=== PATIENT | female | born 1955 | race Caucasian/White ===

== ENCOUNTER 2016-08-29 02:20 | Emergency (ER) | payer BC ==
[2016-08-29] MEDS ORDERED: Al Hydrox/Mg Hydrox/Simet LIQ* 30 ML UDC PO ONE (02:33)
[2016-08-29] MEDS ORDERED: Morphine INJ* 4 MG/ML 1 ML CARPUJECT IV ONE (02:33)
[2016-08-29] MEDS ORDERED: Ondansetron INJ* 2 MG/ML VIAL IV ONE (02:33)
[2016-08-29] MEDS ORDERED: NS 0.9% 1000 ML* 2,000 ML IV ONE (02:33)
[2016-08-29] MEDS ORDERED: Pantoprazole IV* 40 MG IV ONE (02:33)
[2016-08-29] MEDS ORDERED: Lidocaine 2% VISCOUS* 15 ML UDC PO ONE (02:33)
[2016-08-29] MEDS ORDERED: Nitroglycerin TAB 0.4 MG* 0.4 MG TAB SL ONE (02:33)
[2016-08-29 03:11] LABS: Hematocrit 40 % (35-47); Hemoglobin 13.1 g/dl (12.0-16.0); Mean Corpuscular HGB Conc 33 g/dl (31-36); Mean Corpuscular Hemoglobin 29 pg (27-31); Mean Corpuscular Volume 88 fL (80-97); Mean Platelet Volume 9 um3 (7.4-10.4); Red Blood Count 4.49 10^6/ul (4.0-5.4); Red Cell Distribution Width 13 % (10.5-15); White Blood Count 9.9 10^3/ul (3.5-10.8)
[2016-08-29 03:12] LABS: Urine Bilirubin Negative (Negative); Urine Glucose Negative (Negative); Urine Nitrite Negative (Negative)
[2016-08-29 03:59] LABS: Albumin 3.9 g/dL (3.2-5.2); BUN/Creatinine Ratio 21.8 (8-20); C Reactive Protein 3.03 mg/L (< 5.00); EGFR African American 85.4 (>60); EGFR Non-African American 66.4 (>60); Globulin 2.6 g/dL (2-4); Magnesium 1.9 mg/dL (1.9-2.7); Potassium 3.1 mmol/L (3.5-5.0); Total Bilirubin 0.4 mg/dL (0.2-1.0); Total Protein 6.5 g/dL (6.4-8.9)
[2016-08-29 04:08] LABS: TSH (Thyroid Stimulating Horm) 0.95 mcIU/mL (0.34-5.60)
[2016-08-29] MEDS ORDERED: Iohexol 350* (CONTRAST) 500 ML MDV IV ONE (04:16)
[2016-08-29] MEDS ORDERED: Ketorolac INJ* 30 MG/ML 1 ML VIAL IV ONE (06:12)
[2016-08-29] MEDS ORDERED: NS 0.9% 1000 ML* 1,000 ML IV SCH (06:15)
--- NOTE | 2016-08-29 08:48 | RAD ---
HISTORY: Upper abdominal pain COMPARISONS: Same day CT chest abdomen and pelvis. TECHNIQUE: Multiple transverse and longitudinal ultrasound images were obtained of the right upper quadrant. FINDINGS: LIVER: Medial aspect of the right lobe of the liver there is a subcapsular 1.2 hyperechogenic foci exhibiting no significant vascularity. The remainder of the visualized liver is normal in dimensions and echogenicity. Normal hepatic and portal venous blood flow is duplicated with color flow imaging. There is no gross intrahepatic biliary duct dilatation. GALLBLADDER AND EXTRAHEPATIC BILIARY DUCT: The physician extender reports a positive sonographic Dejesus sign. There are innumerable shadowing echogenic foci within the lumen of the gallbladder most compatible with multiple stones and sludge. There is a gallstone at the neck of the gallbladder that remains the mobile despite repositioning the patient. The gallbladder wall measures up to 5 mm in thickness. The common bile duct measures a maximum diameter of 5 mm. PANCREAS: The portions of the pancreas not obscured by bowel gas are normal in appearance. RIGHT KIDNEY: The right kidney is normal in size, morphology and echogenicity. IMPRESSION: CHOLELITHIASIS INCLUDING AN IMMOBILE GALLSTONE AT THE GALLBLADDER NECK IN THE PRESENCE OF MINIMAL GALLBLADDER WALL THICKENING AND A REPORTED POSITIVE SONOGRAPHIC DEJESUS SIGN. THE SONOGRAPHIC FINDINGS COULD BE SEEN IN THE PRESENCE OF OBSTRUCTIVE CHOLECYSTITIS. IF CLINICALLY WARRANTED FURTHER CHARACTERIZATION COULD BE MADE WITH A HIDA SCAN.
--- NOTE | 2016-08-29 08:59 | RAD ---
INDICATION: Epigastric and low thoracic pain with a positive d-dimer COMPARISON: None. TECHNIQUE: Multidetector CT images of the chest, abdomen and pelvis were obtained from the lung apices to the ischial tuberosities after the injection of 100 mL Omnipaque 350 and administration of oral contrast. CT of the chest was acquired according to the pulmonary embolism protocol. CHEST: There is no filling defect of the pulmonary arteries to indicate an acute pulmonary embolism. The lungs are clear. There are no large pleural effusions. There is no mediastinal or hilar lymphadenopathy. The heart and major vascular structures are grossly normal in appearance. At the midline anterior chest wall there is a 1.4 cm hyperattenuating nodule possibly representing a sebaceous or epidermoid cyst. ABDOMEN \T\ PELVIS: The liver, spleen, pancreas and adrenal glands are grossly normal in appearance. Gallstones are seen in the gallbladder lumen and there is the appearance of mild wall thickening. The kidneys are normal in appearance without focal mass, calcification or signs of hydronephrosis. The oral contrast has progressed as far as the distal small bowel. The 5 mm diameter appendix is identified in the right hemiabdomen (coronal image 46). The small and large bowel are not distended. There is no gross retroperitoneal or mesenteric lymphadenopathy. The pelvic viscera is normal in appearance. The abdominal aorta and iliac arteries are normal in course and diameter. There are no sinister bone lesions. IMPRESSION: 1. There are gallstones with questionable appearance of gallbladder wall thickening. 2. No CT evidence of pulmonary embolism. 3. Chronic and degenerative findings as described in the body of the report.
[2016-08-29 11:31] VITALS: BP 117/67
--- NOTE | 2016-08-29 12:16 | RAD ---
INDICATION: Chest pain COMPARISON: None. TECHNIQUE: Single AP portable view of the chest was obtained. FINDINGS: Image quality is compromised due to the relative inferiority of a portable chest x-ray. The heart and mediastinum exhibit normal size and contour. The lungs are grossly clear. There is no evidence of a large pleural effusion. Visualized bones are normal for the patient's age. IMPRESSION: No radiographic evidence for acute cardiopulmonary abnormality on this portable chest x-ray.
--- NOTE | 2016-08-29 13:59 | CONS ---
SURGICAL CONSULTATION: DATE OF CONSULT: 08/29/16 - EMERGENCY DEPT CHIEF COMPLAINT: Epigastric abdominal pain/chest pain, nausea and vomiting. HISTORY OF PRESENT ILLNESS: This is a 60-year-old female, previously in good health, who had developed a dull pressure/pain in the substernal region of the chest on 08/28/17, starting about 9:30 p.m. Prior to this she had eaten some shrimp, cheese, and crackers, as well as had some eggnog to drink. She thought that this might be indigestion. She tried taking Tums, without relief. As her symptoms worsened, she was brought to the emergency room by ambulance. She did experience nausea and apparently, upon being administered GI cocktail in the emergency room, she did vomit. She was noted to have a tender epigastrium at that point. The patient reports no similar episodes of these symptoms in the past. She did have some diarrhea. Denies tea colored urine, cait colored stools. She did experience chills, but reports no fever. Pain seem to be worse with any type of movements and improved with IV pain medication. PAST MEDICAL HISTORY: She has exercise-induced asthma, left knee arthritis, she has had ganglion cyst of the wrist and neuroma of both feet. PAST SURGICAL HISTORY: She has had wisdom teeth extracted and a left carpal tunnel release at [facility] in 2013. MEDICATIONS: Denies. ALLERGIES: No known drug allergies. Band-Aids can cause a rash. FAMILY HISTORY: Her mother of pancreatic cancer at age 76. Father of congestive heart failure at age 89. SOCIAL HISTORY: She reports a 5-pack-year history of tobacco use and quit many years ago. 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 She is and has 12 children. REVIEW OF SYSTEMS: A 14-point review of systems was completed. This is significant for the above mentioned issues, otherwise was negative. PHYSICAL EXAMINATION: She is a 5-feet 6-inch, 140-pound female, lying in the emergency room stretcher, in no acute distress. Her temperature is 97.3, with heart rate of 78, respirations 18, O2 sat 98% on room air, blood pressure 118/ 60. Head is normocephalic and atraumatic, with sclerae anicteric. Mucous membranes are moist. No otorrhea. No rhinorrhea. Her oropharynx is clear. Dentition are intact. Mucous membranes are moist. The neck is symmetrical, with midline trachea. No palpable lymph nodes or masses. Her lungs are clear to auscultation bilaterally, without wheezes, rales or rhonchi. She uses no accessory muscles for respirations. Heart is regular S1 and S2, with no murmurs , rubs or gallops appreciated. The abdomen has bowel sounds present, is without scars, is nondistended, is nontender, with no palpable masses or hernias. No hepatosplenomegaly and no Dejesus sign. Extremities are warmth without cyanosis, clubbing or edema. DIAGNOSTIC STUDIES/LAB DATA: CBC shows WBC is 9.9, hemoglobin 13.1, hematocrit 40, platelets 246. Chemistries are sodium of 141, potassium of 3.1, chloride 105, bicarb 25, BUN 19, creatinine 0.87, glucose 174, lactate 1.8, total bili 0.4, AST 18, ALT 12, alk phos 62. Troponin is negative. C-reactive protein was normal. Urinalysis showed 1+ ketones. RADIOGRAPHIC DATA: She had a CT angiogram, chest, abdomen and pelvis, which showed gallstones. No pulmonary embolism. She had an ultrasound of the gallbladder performed, which showed cholelithiasis, with a gallstone in the gallbladder neck. Minimal gallbladder wall thickening. Positive sonographic Dejesus's sign. IMPRESSION: This is a 60-year-old female, with no significant past medical history, with gallstones and what appears to be biliary colic. There is no evidence for acute cholecystitis based on laboratory data and clinical examination. PLAN/RECOMMENDATIONS: I discussed the findings with the patient and her who accompanied her. I recommended a laparoscopic cholecystectomy. I explained the relevant anatomy. I explained the nature of the disease and the potential complications of gallstones. We discussed the surgery and the potential for open surgery as well. The nature of the procedure, indications, risks, benefits and alternatives, including option of treatment were discussed. The risks were explained, including, not limited to bleeding, infection, pain , scarring, blood clots, pneumonia, bile duct injury or leak, nausea, vomiting, diarrhea, and the risk of general anesthesia. The patient had an opportunity to ask questions. All their questions were answered. She states her understanding. The patient does wish to proceed with surgery. I do not believe that she needs to be admitted at this time and this could be performed as an outpatient procedure and I anticipate this will happen later this week. We are going to try for September 03. [facility] office will contact the patient to make the arrangements. She can be discharged from the emergency room. CC: Herve Herrera MD * [id number]/CPS #: [id number] MTDD
--- NOTE | 2016-09-01 16:32 | ED ---
Zoë Pantoja Adam, scribed for Popeye Xiong MD on 08/29/16 at 0908 . Progress - Results/Orders Results/Orders: Gallbladder ultrasound: CHOLELITHIASIS INCLUDING AN IMMOBILE GALLSTONE AT THE GALLBLADDER NECK IN THE PRESENCE OF MINIMAL GALLBLADDER WALL THICKENING AND A REPORTED POSITIVE SONOGRAPHIC CARSON SIGN. THE SONOGRAPHIC FINDINGS COULD BE SEEN IN THE PRESENCE OF OBSTRUCTIVE CHOLECYSTITIS. IF CLINICALLY WARRANTED FURTHER CHARACTERIZATION COULD BE MADE WITH A HIDA SCAN. Re-Evaluation - Re-Evaluation First Eval Re-Evaluation Time: 09:07 Change: Worse Comment: Pt still c/o RUQ pain. She also developed epigastric pain with radiation to her back. Second Eval Re-Evaluation Time: 11:33 Change: Improved Comment: Patient not experiencing any pain currently. Course/Dx - Diagnoses Provider Diagnoses: Cholelithiasis - Provider Notifications Discussed Care Of Patient With: Dr. Lopez (09:00) - Agrees to admit patient. Dr. Lopez (11:20) - Wants to remove gallbladder this week. She will be discharged home. Instructed by Provider To: Admit As Inpatient The documentation as recorded by the jacquieibZoë maher Adam accurately reflects the service I personally performed and the decisions made by Tyrese ha Jerry, MD.
--- NOTE | 2016-09-02 08:50 | ED ---
Johnathan Pantoja Rebecca, scribed for Jhonny Mcallister MD on 08/29/16 at 0236 . HPI Chest Pain <Popeye Xiong - Last Filed: 09/01/16 16:33> - HPI Summary HPI Summary: Pt is a 60 y/o F who presents to ED c/o CP. Pain began suddenly last night at 2130 (approximately 5 hours prior to arrival) after eating and has been constant since onset. Pain is characterized as pressure, located in the lower/ mid chest and ranked 8/10. Pain radiates into the back, unsure of whether pain radiates into the abdomen. Sx aggravated and alleviated by nothing. Treated with 4 81 mg [employer]. Additionally c/o nausea and "shaking". Denies vomiting, SOB, diaphoresis. No previous similar episodes. No SHx smoking. Confirms that she still has her gallbladder. - History of Current Complaint Hx Obtained From: Patient Onset/Duration: Started Hours Ago - 5 hours ago, Still Present Time of Onset: 21:30 Timing: Constant Initial Severity: Severe Current Severity: Severe Pain Intensity: 8 Pain Scale Used: 0-10 Numeric Chest Pain Location: Mid Sternal, Lower Sternal Chest Pain Radiates: Yes Chest Pain Radiates To:: Back Character: Pressure/Squeezing Aggravating Factor(s): Nothing Alleviating Factor(s): Nothing Associated Signs and Symptoms: Positive: Chest Pain, Nausea, Other: - "shaking" . Negative: Shortness of Breath, Diaphoresis, Vomiting <Jhonny Mcallister - Last Filed: 09/02/16 08:50> - History of Current Complaint Chief Complaint: EDChestPainROMI - Allergy/Home Medications Allergies/Adverse Reactions: Allergies Allergy/AdvReac Type Severity Reaction Status Date / Time BANDAIDS Allergy Rash Uncoded 09/01/16 16:02 PMH/Surg Hx/FS Hx/Imm Hx Endocrine/Hematology History: Denies: Hx Diabetes Cardiovascular History: Denies: Hx Hypercholesterolemia, Hx Hypertension Respiratory History: Reports: Hx Asthma Infectious Disease History: No Infectious Disease History: Denies: Traveled Outside the [place] in Last 30 Days - Family History Known Family History: Positive: Cardiac Disease, Diabetes - Social History Lives: With Family Alcohol Use: None Substance Use Type: Reports: None Smoking Status (MU): Former Smoker <Jhonny Mcallister - Last Filed: 09/02/16 08:50> Review of Systems Positive: Other - "Shaking". Negative: Skin Diaphoresis Positive: Chest Pain Negative: Shortness Of Breath Positive: Nausea. Negative: Vomiting All Other Systems Reviewed And Are Negative: Yes <Jhonny Mcallister - Last Filed: 09/02/16 08:50> Physical Exam Vital Signs On Initial Exam: Initial Vitals Temp Pulse Resp BP Pulse Ox 36.2 C 72 24 120/53 100 08/29/16 02:22 08/29/16 02:22 08/29/16 02:22 08/29/16 02:22 08/29/16 02:22 <Popeye Xiong - Last Filed: 09/01/16 16:33> Triage Information Reviewed: Yes Vital Signs On Initial Exam: Initial Vitals Temp Pulse Resp BP Pulse Ox 97.1 F 72 24 120/53 100 08/29/16 02:22 08/29/16 02:22 08/29/16 02:22 08/29/16 02:22 08/29/16 02:22 Vital Signs Reviewed: Yes Appearance: Positive: Well-Appearing, Pain Distress - Moderate Skin: Positive: Warm, Skin Color Reflects Adequate Perfusion, Dry Eyes: Positive: EOMI, CORTES Neck: Positive: Supple, Nontender Respiratory/Lung Sounds: Positive: Clear to Auscultation, Breath Sounds Present Cardiovascular: Positive: RRR Abdomen Description: Positive: Soft. Negative: Nontender - Tender in the epigastrum Bowel Sounds: Positive: Present Musculoskeletal: Positive: Normal, Strength/ROM Intact Neurological: Positive: Normal, Sensory/Motor Intact, Alert, Oriented to Person Place, Time Psychiatric: Positive: Affect/Mood Appropriate <Jhonny Mcallister - Last Filed: 09/02/16 08:50> Diagnostics - Vital Signs Vital Signs Temp Pulse Resp BP Pulse Ox 08/29/16 11:30 36.6 C 74 16 117/67 08/29/16 10:30 76 18 118/60 98 08/29/16 10:00 68 19 124/62 98 08/29/16 09:00 84 17 129/59 97 08/29/16 08:44 124/70 08/29/16 08:38 79 23 98 08/29/16 08:00 73 17 96 08/29/16 07:00 69 16 122/59 98 01/01/17 06:30 64 22 128/64 100 08/29/16 06:16 16 08/29/16 06:00 75 21 109/92 100 08/29/16 05:30 69 23 131/62 99 08/29/16 05:29 71 22 94 08/29/16 05:27 115/84 08/29/16 04:55 68 22 92 08/29/16 04:14 36.3 C 67 18 100 08/29/16 04:00 68 18 136/62 95 08/29/16 03:49 63 20 122/54 99 08/29/16 03:00 60 24 100 08/29/16 02:36 71 21 108/55 100 08/29/16 02:22 36.2 C 72 24 120/53 100 - Laboratory Lab Results: Lab Results 08/29/16 08/29/16 08/29/16 Range/Units 02:59 02:59 02:59 WBC 9.9 (3.5-10.8) 10^3/ul RBC 4.49 (4.0-5.4) 10^6/ul Hgb 13.1 (12.0-16.0) g/dl Hct 40 (35-47) % MCV 88 (80-97) fL MCH 29 (27-31) pg MCHC 33 (31-36) g/dl RDW 13 (10.5-15) % Plt Count 246 (150-450) 10^3/ul MPV 9 (7.4-10.4) um3 Neut % (Auto) 79.1 (38-83) % Lymph % (Auto) 14.7 L (25-47) % Sharkey % (Auto) 5.0 (1-9) % Eos % (Auto) 0.6 (0-6) % Baso % (Auto) 0.6 (0-2) % Absolute Neuts (auto) 7.9 H (1.5-7.7) 10^3/ul Absolute Lymphs (auto) 1.5 (1.0-4.8) 10^3/ul Absolute Monos (auto) 0.5 (0-0.8) 10^3/ul Absolute Eos (auto) 0.1 (0-0.6) 10^3/ul Absolute Basos (auto) 0.1 (0-0.2) 10^3/ul Absolute Nucleated RBC 0 10^3/ul Nucleated RBC % 0 INR (Anticoag Therapy) 0.97 (0.89-1.11) APTT 25.0 L (26.0-36.3) seconds D-Dimer, Quantitative 240 H (Less Than 230) ng/mL Sodium (133-145) mmol/L Potassium (3.5-5.0) mmol/L Chloride (101-111) mmol/L Carbon Dioxide (22-32) mmol/L Anion Gap (2-11) mmol/L BUN (6-24) mg/dL Creatinine (0.51-0.95) mg/dL Est GFR ( Amer) (>60) Est GFR (Non-Af Amer) (>60) BUN/Creatinine Ratio (8-20) Glucose (70-100) mg/dL Lactic Acid (0.5-2.0) mmol/L Calcium (8.6-10.3) mg/dL Magnesium (1.9-2.7) mg/dL Total Bilirubin (0.2-1.0) mg/dL AST (13-39) U/L ALT (7-52) U/L Alkaline Phosphatase (34-104) U/L Total Creatine Kinase (10-223) U/L CK-MB (CK-2) (0.6-6.3) ng/mL Troponin I (<0.04) ng/mL C-Reactive Protein (< 5.00) mg/L B-Natriuretic Peptide ( - 100) pg/mL Total Protein (6.4-8.9) g/dL Albumin (3.2-5.2) g/dL Globulin (2-4) g/dL Albumin/Globulin Ratio (1-3) TSH (0.34-5.60) mcIU/mL Urine Color Yellow Urine Appearance Cloudy Urine pH 7.0 (5-9) Ur Specific [place] 1.017 (1.010-1.030) Urine Protein Negative (Negative) Urine Ketones 1+ H (Negative) Urine Blood Negative (Negative) Urine Nitrate Negative (Negative) Urine Bilirubin Negative (Negative) Urine Urobilinogen Negative (Negative) Ur Leukocyte Esterase Negative (Negative) Urine Glucose Negative (Negative) 08/29/16 08/29/16 08/29/16 Range/Units 02:59 02:59 02:59 WBC (3.5-10.8) 10^3/ul RBC (4.0-5.4) 10^6/ul Hgb (12.0-16.0) g/dl Hct (35-47) % MCV (80-97) fL MCH (27-31) pg MCHC (31-36) g/dl RDW (10.5-15) % Plt Count (150-450) 10^3/ul MPV (7.4-10.4) um3 Neut % (Auto) (38-83) % Lymph % (Auto) (25-47) % Sharkey % (Auto) (1-9) % Eos % (Auto) (0-6) % Baso % (Auto) (0-2) % Absolute Neuts (auto) (1.5-7.7) 10^3/ul Absolute Lymphs (auto) (1.0-4.8) 10^3/ul Absolute Monos (auto) (0-0.8) 10^3/ul Absolute Eos (auto) (0-0.6) 10^3/ul Absolute Basos (auto) (0-0.2) 10^3/ul Absolute Nucleated RBC 10^3/ul Nucleated RBC % INR (Anticoag Therapy) (0.89-1.11) APTT (26.0-36.3) seconds D-Dimer, Quantitative (Less Than 230) ng/mL Sodium 141 (133-145) mmol/L Potassium 3.1 L (3.5-5.0) mmol/L Chloride 105 (101-111) mmol/L Carbon Dioxide 25 (22-32) mmol/L Anion Gap 11 (2-11) mmol/L BUN 19 (6-24) mg/dL Creatinine 0.87 (0.51-0.95) mg/dL Est GFR ( Amer) 85.4 (>60) Est GFR (Non-Af Amer) 66.4 (>60) BUN/Creatinine Ratio 21.8 H (8-20) Glucose 174 H (70-100) mg/dL Lactic Acid 1.8 (0.5-2.0) mmol/L Calcium 10.0 (8.6-10.3) mg/dL Magnesium 1.9 (1.9-2.7) mg/dL Total Bilirubin 0.40 (0.2-1.0) mg/dL AST 18 (13-39) U/L ALT 12 (7-52) U/L Alkaline Phosphatase 62 (34-104) U/L Total Creatine Kinase 71 (10-223) U/L CK-MB (CK-2) 2.7 (0.6-6.3) ng/mL Troponin I 0.00 (<0.04) ng/mL C-Reactive Protein 3.03 (< 5.00) mg/L B-Natriuretic Peptide 28 ( - 100) pg/mL Total Protein 6.5 (6.4-8.9) g/dL Albumin 3.9 (3.2-5.2) g/dL Globulin 2.6 (2-4) g/dL Albumin/Globulin Ratio 1.5 (1-3) TSH 0.95 (0.34-5.60) mcIU/mL Urine Color Urine Appearance Urine pH (5-9) Ur Specific [place] (1.010-1.030) Urine Protein (Negative) Urine Ketones (Negative) Urine Blood (Negative) Urine Nitrate (Negative) Urine Bilirubin (Negative) Urine Urobilinogen (Negative) Ur Leukocyte Esterase (Negative) Urine Glucose (Negative) 08/29/16 Range/Units 09:00 WBC (3.5-10.8) 10^3/ul RBC (4.0-5.4) 10^6/ul Hgb (12.0-16.0) g/dl Hct (35-47) % MCV (80-97) fL MCH (27-31) pg MCHC (31-36) g/dl RDW (10.5-15) % Plt Count (150-450) 10^3/ul MPV (7.4-10.4) um3 Neut % (Auto) (38-83) % Lymph % (Auto) (25-47) % Sharkey % (Auto) (1-9) % Eos % (Auto) (0-6) % Baso % (Auto) (0-2) % Absolute Neuts (auto) (1.5-7.7) 10^3/ul Absolute Lymphs (auto) (1.0-4.8) 10^3/ul Absolute Monos (auto) (0-0.8) 10^3/ul Absolute Eos (auto) (0-0.6) 10^3/ul Absolute Basos (auto) (0-0.2) 10^3/ul Absolute Nucleated RBC 10^3/ul Nucleated RBC % INR (Anticoag Therapy) (0.89-1.11) APTT (26.0-36.3) seconds D-Dimer, Quantitative (Less Than 230) ng/mL Sodium (133-145) mmol/L Potassium (3.5-5.0) mmol/L Chloride (101-111) mmol/L Carbon Dioxide (22-32) mmol/L Anion Gap (2-11) mmol/L BUN (6-24) mg/dL Creatinine (0.51-0.95) mg/dL Est GFR ( Amer) (>60) Est GFR (Non-Af Amer) (>60) BUN/Creatinine Ratio (8-20) Glucose (70-100) mg/dL Lactic Acid (0.5-2.0) mmol/L Calcium (8.6-10.3) mg/dL Magnesium (1.9-2.7) mg/dL Total Bilirubin (0.2-1.0) mg/dL AST (13-39) U/L ALT (7-52) U/L Alkaline Phosphatase (34-104) U/L Total Creatine Kinase (10-223) U/L CK-MB (CK-2) (0.6-6.3) ng/mL Troponin I 0.00 (<0.04) ng/mL C-Reactive Protein (< 5.00) mg/L B-Natriuretic Peptide ( - 100) pg/mL Total Protein (6.4-8.9) g/dL Albumin (3.2-5.2) g/dL Globulin (2-4) g/dL Albumin/Globulin Ratio (1-3) TSH (0.34-5.60) mcIU/mL Urine Color Urine Appearance Urine pH (5-9) Ur Specific [place] (1.010-1.030) Urine Protein (Negative) Urine Ketones (Negative) Urine Blood (Negative) Urine Nitrate (Negative) Urine Bilirubin (Negative) Urine Urobilinogen (Negative) Ur Leukocyte Esterase (Negative) Urine Glucose (Negative) Result Diagrams: 08/29/16 02:59 08/29/16 02:59 Lab Statement: Any lab studies that have been ordered have been reviewed, and results considered in the medical decision making process. <PiedmontPopeye - Last Filed: 09/01/16 16:33> - Vital Signs Vital Signs Temp Pulse Resp BP Pulse Ox 08/29/16 02:22 97.1 F 72 24 120/53 100 - Laboratory Lab Results: Lab Results 08/29/16 08/29/16 08/29/16 Range/Units 02:59 02:59 02:59 WBC 9.9 (3.5-10.8) 10^3/ul RBC 4.49 (4.0-5.4) 10^6/ul Hgb 13.1 (12.0-16.0) g/dl Hct 40 (35-47) % MCV 88 (80-97) fL MCH 29 (27-31) pg MCHC 33 (31-36) g/dl RDW 13 (10.5-15) % Plt Count 246 (150-450) 10^3/ul MPV 9 (7.4-10.4) um3 Neut % (Auto) 79.1 (38-83) % Lymph % (Auto) 14.7 L (25-47) % Sharkey % (Auto) 5.0 (1-9) % Eos % (Auto) 0.6 (0-6) % Baso % (Auto) 0.6 (0-2) % Absolute Neuts (auto) 7.9 H (1.5-7.7) 10^3/ul Absolute Lymphs (auto) 1.5 (1.0-4.8) 10^3/ul Absolute Monos (auto) 0.5 (0-0.8) 10^3/ul Absolute Eos (auto) 0.1 (0-0.6) 10^3/ul Absolute Basos (auto) 0.1 (0-0.2) 10^3/ul Absolute Nucleated RBC 0 10^3/ul Nucleated RBC % 0 INR (Anticoag Therapy) 0.97 (0.89-1.11) APTT 25.0 L (26.0-36.3) seconds D-Dimer, Quantitative 240 H (Less Than 230) ng/mL Sodium (133-145) mmol/L Potassium (3.5-5.0) mmol/L Chloride (101-111) mmol/L Carbon Dioxide (22-32) mmol/L Anion Gap (2-11) mmol/L BUN (6-24) mg/dL Creatinine (0.51-0.95) mg/dL Est GFR ( Amer) (>60) Est GFR (Non-Af Amer) (>60) BUN/Creatinine Ratio (8-20) Glucose (70-100) mg/dL Lactic Acid (0.5-2.0) mmol/L Calcium (8.6-10.3) mg/dL Magnesium (1.9-2.7) mg/dL Total Bilirubin (0.2-1.0) mg/dL AST (13-39) U/L ALT (7-52) U/L Alkaline Phosphatase (34-104) U/L Total Creatine Kinase (10-223) U/L CK-MB (CK-2) (0.6-6.3) ng/mL Troponin I (<0.04) ng/mL C-Reactive Protein (< 5.00) mg/L B-Natriuretic Peptide ( - 100) pg/mL Total Protein (6.4-8.9) g/dL Albumin (3.2-5.2) g/dL Globulin (2-4) g/dL Albumin/Globulin Ratio (1-3) TSH (0.34-5.60) mcIU/mL Urine Color Yellow Urine Appearance Cloudy Urine pH 7.0 (5-9) Ur Specific [place] 1.017 (1.010-1.030) Urine Protein Negative (Negative) Urine Ketones 1+ H (Negative) Urine Blood Negative (Negative) Urine Nitrate Negative (Negative) Urine Bilirubin Negative (Negative) Urine Urobilinogen Negative (Negative) Ur Leukocyte Esterase Negative (Negative) Urine Glucose Negative (Negative) 08/29/16 08/29/16 08/29/16 Range/Units 02:59 02:59 02:59 WBC (3.5-10.8) 10^3/ul RBC (4.0-5.4) 10^6/ul Hgb (12.0-16.0) g/dl Hct (35-47) % MCV (80-97) fL MCH (27-31) pg MCHC (31-36) g/dl RDW (10.5-15) % Plt Count (150-450) 10^3/ul MPV (7.4-10.4) um3 Neut % (Auto) (38-83) % Lymph % (Auto) (25-47) % Sharkey % (Auto) (1-9) % Eos % (Auto) (0-6) % Baso % (Auto) (0-2) % Absolute Neuts (auto) (1.5-7.7) 10^3/ul Absolute Lymphs (auto) (1.0-4.8) 10^3/ul Absolute Monos (auto) (0-0.8) 10^3/ul Absolute Eos (auto) (0-0.6) 10^3/ul Absolute Basos (auto) (0-0.2) 10^3/ul Absolute Nucleated RBC 10^3/ul Nucleated RBC % INR (Anticoag Therapy) (0.89-1.11) APTT (26.0-36.3) seconds D-Dimer, Quantitative (Less Than 230) ng/mL Sodium 141 (133-145) mmol/L Potassium 3.1 L (3.5-5.0) mmol/L Chloride 105 (101-111) mmol/L Carbon Dioxide 25 (22-32) mmol/L Anion Gap 11 (2-11) mmol/L BUN 19 (6-24) mg/dL Creatinine 0.87 (0.51-0.95) mg/dL Est GFR ( Amer) 85.4 (>60) Est GFR (Non-Af Amer) 66.4 (>60) BUN/Creatinine Ratio 21.8 H (8-20) Glucose 174 H (70-100) mg/dL Lactic Acid 1.8 (0.5-2.0) mmol/L Calcium 10.0 (8.6-10.3) mg/dL Magnesium 1.9 (1.9-2.7) mg/dL Total Bilirubin 0.40 (0.2-1.0) mg/dL AST 18 (13-39) U/L ALT 12 (7-52) U/L Alkaline Phosphatase 62 (34-104) U/L Total Creatine Kinase 71 (10-223) U/L CK-MB (CK-2) 2.7 (0.6-6.3) ng/mL Troponin I 0.00 (<0.04) ng/mL C-Reactive Protein 3.03 (< 5.00) mg/L B-Natriuretic Peptide 28 ( - 100) pg/mL Total Protein 6.5 (6.4-8.9) g/dL Albumin 3.9 (3.2-5.2) g/dL Globulin 2.6 (2-4) g/dL Albumin/Globulin Ratio 1.5 (1-3) TSH 0.95 (0.34-5.60) mcIU/mL Urine Color Urine Appearance Urine pH (5-9) Ur Specific [place] (1.010-1.030) Urine Protein (Negative) Urine Ketones (Negative) Urine Blood (Negative) Urine Nitrate (Negative) Urine Bilirubin (Negative) Urine Urobilinogen (Negative) Ur Leukocyte Esterase (Negative) Urine Glucose (Negative) 08/29/16 Range/Units 09:00 WBC (3.5-10.8) 10^3/ul RBC (4.0-5.4) 10^6/ul Hgb (12.0-16.0) g/dl Hct (35-47) % MCV (80-97) fL MCH (27-31) pg MCHC (31-36) g/dl RDW (10.5-15) % Plt Count (150-450) 10^3/ul MPV (7.4-10.4) um3 Neut % (Auto) (38-83) % Lymph % (Auto) (25-47) % Sharkey % (Auto) (1-9) % Eos % (Auto) (0-6) % Baso % (Auto) (0-2) % Absolute Neuts (auto) (1.5-7.7) 10^3/ul Absolute Lymphs (auto) (1.0-4.8) 10^3/ul Absolute Monos (auto) (0-0.8) 10^3/ul Absolute Eos (auto) (0-0.6) 10^3/ul Absolute Basos (auto) (0-0.2) 10^3/ul Absolute Nucleated RBC 10^3/ul Nucleated RBC % INR (Anticoag Therapy) (0.89-1.11) APTT (26.0-36.3) seconds D-Dimer, Quantitative (Less Than 230) ng/mL Sodium (133-145) mmol/L Potassium (3.5-5.0) mmol/L Chloride (101-111) mmol/L Carbon Dioxide (22-32) mmol/L Anion Gap (2-11) mmol/L BUN (6-24) mg/dL Creatinine (0.51-0.95) mg/dL Est GFR ( Amer) (>60) Est GFR (Non-Af Amer) (>60) BUN/Creatinine Ratio (8-20) Glucose (70-100) mg/dL Lactic Acid (0.5-2.0) mmol/L Calcium (8.6-10.3) mg/dL Magnesium (1.9-2.7) mg/dL Total Bilirubin (0.2-1.0) mg/dL AST (13-39) U/L ALT (7-52) U/L Alkaline Phosphatase (34-104) U/L Total Creatine Kinase (10-223) U/L CK-MB (CK-2) (0.6-6.3) ng/mL Troponin I 0.00 (<0.04) ng/mL C-Reactive Protein (< 5.00) mg/L B-Natriuretic Peptide ( - 100) pg/mL Total Protein (6.4-8.9) g/dL Albumin (3.2-5.2) g/dL Globulin (2-4) g/dL Albumin/Globulin Ratio (1-3) TSH (0.34-5.60) mcIU/mL Urine Color Urine Appearance Urine pH (5-9) Ur Specific [place] (1.010-1.030) Urine Protein (Negative) Urine Ketones (Negative) Urine Blood (Negative) Urine Nitrate (Negative) Urine Bilirubin (Negative) Urine Urobilinogen (Negative) Ur Leukocyte Esterase (Negative) Urine Glucose (Negative) Result Diagrams: 08/29/16 02:59 08/29/16 02:59 Lab Statement: Any lab studies that have been ordered have been reviewed, and results considered in the medical decision making process. - Radiology CXR Xray Interpretation: No Acute Changes Radiology Interpretation Completed By: ED Physician - CT CTA Chest/Abd/Pel CT Interpretation Completed By: Radiologist - EKG 0224 Cardiac Rate: NL - 62 bpm EKG Rhythm: Sinus Rhythm - normal ST Segment: Normal <Mcallister,Jhonny - Last Filed: 09/02/16 08:50> Re-Evaluation - Re-Evaluation First Eval Re-Evaluation Time: 03:19 Change: Unchanged Comment: Pt is still experiencing pain. Second Eval Re-Evaluation Time: 04:18 Change: Improved Comment: Pt is feeling better, pain is still present but has decreased in intensity and is now more focused in the upper abdomen. <Jhonny Mcallister - Last Filed: 09/02/16 08:50> Chest Pain Course/Dx <Roberto Xiongry - Last Filed: 09/01/16 16:33> - Course Assessment/Plan: DISPOSITIN PENDING AT SHIFT CHANGE, STABLE. <Jhonny Mcallister - Last Filed: 09/02/16 08:50> - Diagnoses Provider Diagnoses: Cholelithiasis, Abdominal pain, Chest pain Discharge <Popeye Xiong - Last Filed: 09/01/16 16:33> <Jhonny Mcallister - Last Filed: 09/02/16 08:50> - Discharge Plan Condition: Stable Disposition: HOME Prescriptions: HYDROcodone/ACETAMIN 5-325 MG* [[place] 5-325 TAB*] 1 tab PO Q4H PRN #12 tab MDD 6 PRN Reason: Pain Scale 6-10 Patient Education Materials: Gallstones (ED) Referrals: Herve Herrera MD [Primary Care Provider] - Serg Lopez MD [Medical Doctor] - 2 Days Additional Instructions: Return to the emergency department for changing or worsening symptoms The documentation as recorded by the Johnathan gutierrez Rebecca accurately reflects the service I personally performed and the decisions made by me, Jhonny Mcallister MD.
== END 2016-08-29 11:30 | disposition home or self-care (01) ==
LOC: EDUNIT# → ED 02:20
DX: K80.50 Calculus of bile duct without cholangitis or cholecystitis without obstruction (principal); R07.9 Chest pain, unspecified
CPT/HCPCS: 36415; 71010; 71275; 74177; 76705; 80053; 81003; 82550; 82553; 83605; 83735; 83880; 84443; 84484; 85025; 85379; 85610; 85730; 86140; 93005; 96361; 96374; 99283; A9270-GY; J1885; J2405; Q9967

== ENCOUNTER → 2016-09-03 | Day surgery (SDC) | payer BC ==
[~2016-09-03] MED LIST: Atracurium* 10 MG/ML 10 ML VIAL ONE; Buffered Lidocaine 1% SYR 3ML* 3 ML/SYR SYRINGE INTRADERM ONE; Buffered Lidocaine 1% SYR 3ML* 3 ML/SYR SYRINGE ONE; Bupivacaine 0.5% W/EPI SDV* 30 ML VIAL ONE; Dexamethasone IV* 4 MG/ML 1 ML (4 MG) ONE; Famotidine IV* 10 MG/ML 2 ML (20 mg) IV ONE; Famotidine IV* 10 MG/ML 2 ML (20 mg) ONE; Glycopyrrolate IV* 0.2 MG/ML 1 ML VIAL ONE; HYDROcodone/ACETAMIN 5-325 MG* 1 TAB PO PRN; KETAMINE HCL* 50 MG/ML 10 ML VIAL ONE; Lidocaine 2% MPF* 2 ML VIAL ONE; Midazolam* 1 MG/ML 5 ML VIAL (5 MG) ONE; Morphine INJ* 10 MG/ML 1 ML CARPUJECT ONE; Morphine INJ* 2 MG/ML 1 ML CARPUJECT IV PRN; Neostigmine Methylsulfate* 2 MG/2 ML SYRINGE ONE; Ondansetron INJ* 2 MG/ML VIAL IV PRN; Ondansetron INJ* 2 MG/ML VIAL ONE; PROCHLORPERAZINE INJ 5 MG/ML 2 ML VIAL IV PRN; Phenylephrine IV* 40 MCG/ML 10 ML SYRINGE ONE; Propofol* 10 MG/ML 20 ML BTL IV PUSH ONE; ceFOXitin 2 GM IVPREMIX* 2 GM/50 ML BAG ONE; fentaNYL* 50 MCG/ML 2 ML VIAL (100 MCG VIAL) IV PRN; fentaNYL* 50 MCG/ML 2 ML VIAL (100 MCG VIAL) ONE; oxyCODONE/Acetamin 5/325 MG* TAB PO PRN
[2016-09-03 19:03] VITALS: BP 116/78
--- NOTE | 2016-09-04 11:19 | OP ---
DATE OF OPERATION: 09/03/16 - [facility] DATE OF : 55 SURGEON: Serg Lopez MD REPAIR ARMATURE WINDER: SUDHEER Jackson ANESTHESIOLOGIST: Dr. Thomas. ANESTHESIA: General endotracheal. PRE-OP DIAGNOSIS: Symptomatic cholelithiasis. POST-OP DIAGNOSIS: Acute cholecystitis. OPERATIVE PROCEDURE: Laparoscopic cholecystectomy. ESTIMATED BLOOD LOSS: Minimal. IV FLUIDS: Crystalloid. SPECIMENS: Gallbladder and contents. DRAINS: None. COMPLICATIONS: None. COUNTS: The instrument, needle, and sponge counts were correct. DESCRIPTION OF PROCEDURE: The patient was brought to the operating room and placed on the table supine. Sequential compression devices were placed on both lower extremities. General anesthesia was administered. The abdomen was prepped and draped in the usual sterile fashion. She received appropriate intravenous antibiotics. Time-out was performed. Local anesthetic was infiltrated into the skin and soft tissue prior to making each incision. Entry to the abdomen was through a transumbilical vertical incision using an open technique. After accessing the peritoneal cavity, carbon dioxide was insufflated to a pressure of 15 mmHg. Under direct visualization, a 5-mm trocar was placed in the subxiphoid position and two in the right upper quadrant. The patient was positioned in reverse Trendelenburg right side up. The gallbladder was identified. It appeared to be acutely inflamed and there was omentum adherent to it. The gallbladder was grasped at the fundus, retracted superiorly, and the omentum was dissected free from the gallbladder and the liver edge to which it was also adherent. The node of Calot was identified and was dissected free in order to identify the triangle. The peritoneum investing the gallbladder infundibulum was incised medially and laterally and blunt dissection was used to identify the cystic duct and the cystic artery. Critical view was obtained. The cystic artery was doubly clipped and divided. The cystic duct was doubly clipped and divided. The gallbladder was then grasped at the cystic duct stump and retracted superiorly. The hook cautery was used to free the gallbladder staying in avascular plane and after freeing the gallbladder from the liver. It was placed into endoscopic retrieval bag, which was brought out through the umbilical site. Due to the enlarged nature of the gallbladder and large stones within the gallbladder, gallbladder had to be opened and stones removed piecemeal in order that the specimen could be retrieved. After reestablishing pneumoperitoneum, inspection of the area of dissection revealed hemostasis was excellent and all the clips were intact. Lavage was performed until clear in the right upper quadrant. The ports were then removed under direct visualization and the carbon dioxide was released. The umbilical site was closed with 0 Polysorb in figure-of-8 fashion to approximate the fascia. The skin incisions were all closed with 4-0 Monocryl in subcuticular fashion and the Steri-Strips were applied. The patient tolerated the procedure well, was then extubated and then transferred to the recovery room in stable condition. CC: Herve Herrera MD * [id number]/[facility] #: [id number]
== END | disposition home or self-care (01) ==
LOC: OR 13:03
PROVIDERS: ATTEND Surgery
DX: K80.12 Calculus of gallbladder with acute and chronic cholecystitis without obstruction (principal); J45.990 Exercise induced bronchospasm; Z87.891 Personal history of nicotine dependence
CPT/HCPCS: 88304; C1776; J0694; J1100; J2250; J2270; J2405; J2704; J3010